=== PATIENT | male | born 1950 | race Caucasian/White ===

== ENCOUNTER → 2016-12-05 | Outpatient (CLI) | payer OTHER ==
--- NOTE | 2016-12-05 03:23 | RAD ---
EXAM: Bilateral lower extremity venous Doppler. HISTORY: Bilateral lower extremity pain/swelling and redness. COMPARISON: None available. FINDINGS: Grayscale and Doppler analysis of the both lower extremity deep venous systems was performed with graded compression and augmentation. The common femoral, greater saphenous, superficial femoral, popliteal and calf veins were assessed. Echogenic nonocclusive thrombus is noted on the right within the distal superficial femoral vein, popliteal vein and one of the posterior tibial veins. The calf veins are difficult to visualize given body habitus. Nonocclusive echogenic thrombus is seen within the left common femoral, superficial femoral, deep femoral, popliteal and posterior tibial veins. The peroneal veins could not be visualized given body habitus. IMPRESSION: 1. Bilateral echogenic nonocclusive thrombus as detailed above. This suggests chronic thrombosis. Correlate for such history. No clear acute thrombus is seen. These findings will be communicated to the ordering physician at the time of the study. Electronically signed by: Chema Boone MD (12/05/2016 3:19 AM)
== END | disposition home or self-care (01) ==
LOC: US 02:01
PROVIDERS: ATTEND Internal Medicine Cardiovascular Disease
DX: I82.90 Acute embolism and thrombosis of unspecified vein (principal); M79.89 Other specified soft tissue disorders; Z86.718 Personal history of other venous thrombosis and embolism
CPT/HCPCS: 93970